=== PATIENT | female | born 1985 | race Caucasian/White ===

== ENCOUNTER 2024-01-20 16:02 | Emergency (ER) | payer SELFPAY ==
[2024-01-20] MEDS ORDERED: Ibuprofen 200 MG TAB ONE (16:43)
== END 2024-01-20 16:55 | disposition home or self-care (01) ==
LOC: ERS 16:02
DX: M25.572 Pain in left ankle and joints of left foot (principal); I10 Essential (primary) hypertension; F17.290 Nicotine dependence, other tobacco product, uncomplicated